=== PATIENT | male | born 1960 | race Caucasian/White ===

== ENCOUNTER 2021-08-02 11:17 | Emergency (ER) | payer BC ==
[~2021-08-02] VITALS: Ht 182.9 cm; Wt 102.1 kg
[2021-08-02] MEDS ORDERED: CARVEDILOL25 MG (11:51)
[2021-08-02] MEDS ORDERED: JANTOVEN2 MG (11:51)
[2021-08-02] MEDS ORDERED: COLCRYS0.6 MG (11:52)
[2021-08-02] MEDS ORDERED: HALOPERIDO100 MG/12 (11:52)
[2021-08-02] MEDS ORDERED: SODIUM BICARBO650 MG (11:53)
[2021-08-02] MEDS ORDERED: ORTHO DF 3,7751 EACH (11:53)
[2021-08-02] MEDS ORDERED: CLEOCIN HCL300 MG PO (13:27)
== END 2021-08-02 13:36 | disposition home or self-care (01) ==
LOC: ER 11:17
DX: S91.312A Laceration without foreign body, left foot, initial encounter (principal); X58.XXXA Exposure to other specified factors, initial encounter; Y93.89 Activity, other specified; Y92.832 Beach as the place of occurrence of the external cause; Y99.8 Other external cause status